=== PATIENT | female | born 1985 | race Caucasian/White ===

== ENCOUNTER 2017-09-29 21:05 | Emergency (ER) | payer OTHER ==
[2017-09-29] MEDS ORDERED: KETOROLAC 60 MG/2 ML VIAL IM STA (21:40)
[2017-09-29] MEDS ORDERED: CYCLOBENZAPRINE 10 MG TABLET PO STA (21:40)
--- NOTE | 2017-09-29 21:48 | ED Physician Documentation ---
History of Present Illness - Stated complaint Stated Complaint: SHOULDER PX - Chief complaint Chief Complaint: Ext Problem - History obtained from History obtained from: Patient - History of Present Illness Timing: Today Pain level max: 8 Pain level now: 8 Quality: aching, pain Improved by: rest Worsened by: movement - Additonal information Additional information: L shoulder pain, worse with movement. Better with rest. Doesn't recall an injury. Took motrin this am without relief. No fevers. no numbness or tingling. Review of Systems Constitutional: denies: Fever, Chills Nose: denies: Rhinorrhea / runny nose, Congestion GI: denies: Nausea, Vomiting, Diarrhea Skin: denies: Rash Musculoskeletal: denies: Neck pain, Back pain Neurologic: denies: Headache PD PAST MEDICAL HISTORY - Past Medical History Past Medical History: No - Past Surgical History Past Surgical History: Yes General: Cholecystectomy - Present Medications Home Medications: Ambulatory Orders Medication Instructions Recorded Confirmed Cyclobenzaprine [Flexeril] 10 mg PO TID PRN #20 tablet 01/23/16 HYDROcod/ACETAM 5/325 [[place] 5/325] 1 - 2 ea PO Q6H PRN #15 tablet 01/23/16 Cyclobenzaprine [Flexeril] 10 mg PO TID PRN #20 tablet 09/29/17 Hydrocodone/Acetaminophen 1 - 2 each PO Q6H PRN #14 tablet 09/29/17 [Hydrocodon-Acetaminophen 5-325] Meloxicam [Mobic] 7.5 mg PO BID PRN #20 tablet 09/29/17 - Allergies Allergies/Adverse Reactions: Allergies Allergy/AdvReac Type Severity Reaction Status Date / Time No Known Drug Allergies Allergy Verified 09/29/17 21:15 - Social History Does the pt smoke?: No Smoking Status: Never smoker Does the pt drink ETOH?: No Does the pt have substance abuse?: No - Immunizations Immunizations are current?: Yes - POLST Patient has POLST: No PD ED PE NORMAL - Vitals Vital signs reviewed: Yes - General General: Alert and oriented X 3 - HEENT HEENT: Moist mucous membranes - Neck Neck: Supple, no meningeal sign, No bony TTP - Cardiac Cardiac: RRR - Respiratory Respiratory: No respiratory distress, Clear bilaterally - Back Back: No spinal TTP - Derm Derm: Warm and dry - Extremities Extremities: Other (L shoulder - limited ROM 2/2 pain of the L shoulder. Muscle spasm present. TTP around the rotator cuff. pain with internal and external rotation as well and abduction. NVI including axillary nerve. ) - Neuro Neuro: Alert and oriented X 3 - Psych Psych: Normal mood, Normal affect Results - Vitals Vitals: Vital Signs - 24 hr 18 18 09/29/17 21:11 22:29 22:33 Temperature 36.3 C L 36.3 C L 36.2 C L Heart Rate 95 83 75 Respiratory 18 18 18 Rate Blood Pressure 122/83 H 104/61 O2 Saturation 99 98 100 Oxygen O2 Source Room air - Rads (name of study) L shoulder xray Radiology: Prelim report reviewed, EMP read contemporaneously, See rad report ( normal) PD MEDICAL DECISION MAKING - ED course Complexity details: reviewed results, re-evaluated patient, considered differential, d/w patient ED course: Patient is a 32-year-old female presents to the emergency department with left shoulder pain, unclear etiology. No acute findings on x-ray. Possible rotator cuff injury that is exacerbated? Possible muscle spasm. Seems to feel better after Toradol and Flexeril. Feels better in a sling as well, but still has pain with movement. Will keep her in the sling for the next 2-3 days and then have her start to gently move her shoulder. We will have her follow-up closely with her doctor for further evaluation and care. Patient counseled regarding signs and symptoms for which I believe and urgent re-evaluation would be necessary. Patient with good understanding of and agreement to plan and is comfortable going home at this time This document was made in part using voice recognition software. While efforts are made to proofread this document, sound alike and grammatical errors may occur. - Sepsis Event Vital Signs: Vital Signs - 24 hr 09/29/1718 09/29/17 21:11 22:29 22:33 Temperature 36.3 C L 36.3 C L 36.2 C L Heart Rate 95 83 75 Respiratory 18 18 18 Rate Blood Pressure 122/83 H 104/61 O2 Saturation 99 98 100 Oxygen O2 Source Room air Departure - Departure Disposition: 01 Home, Self Care Clinical Impression: Muscle spasm of left shoulder Condition: Good Instructions: ED Tendinitis Rotator Cuff Follow-Up: your,doctor in 1 week [Other] Prescriptions: Cyclobenzaprine [Flexeril] 10 mg PO TID PRN #20 tablet PRN Reason: Spasms Hydrocodone/Acetaminophen [Hydrocodon-Acetaminophen 5-325] 1 - 2 each PO Q6H PRN #14 tablet PRN Reason: pain Meloxicam [Mobic] 7.5 mg PO BID PRN #20 tablet PRN Reason: Pain Comments: The cause of your symptoms is unclear tonight but appears related to spasm. Return if you worsen. You may need physical therapy or an MRI with your doctor in your symptoms continue. Do not drink alcohol or drive while on narcotic pain medicine. Note that many narcotic pain relievers also contain tylenol/acetaminophen. Please ensure that your total dose of acetaminophen from all sources does not exceed 3 grams (3000mg) per day. You may constipated on this medication, take a stool softener such as "Colace" twice a day while you are on it. Also recommend a zjru-epx-pyhjino laxative such as senna or MiraLAX any day that you do not have a bowel movement. If you received narcotic pain medication in the emergency department, do not drive or operate machinery for the next 24 hours. Discharge Date/Time: 09/29/17 22:52
--- NOTE | 2017-09-29 22:06 | XRAY Report ---
Procedure Date: 09/29/2017 Accession Number: [id number] / [id number] Procedure: XR - Shoulder 3 View LT CPT Code: FULL RESULT: EXAM: LEFT SHOULDER RADIOGRAPHY EXAM DATE: 09/29/2017 09:56 PM. CLINICAL HISTORY: Left shoulder pain COMPARISON: None. TECHNIQUE: 3 views. FINDINGS: Bones: No fracture or focal bony lesion. Joints: No evidence of dislocation. Soft Tissues: No unexpected soft tissue findings. IMPRESSION: No evidence of fracture or dislocation. No evidence of significant degenerative disease. RADIA
[2017-09-29 22:29] VITALS: BP 104/61
== END 2017-09-29 22:52 | disposition home or self-care (01) ==
LOC: ED 21:05
DX: M62.838 Other muscle spasm (principal); M25.512 Pain in left shoulder
CPT/HCPCS: 73030; 96372; 99283; A9270

== ENCOUNTER 2021-04-27 11:07 | Emergency (ER) | payer OTHER ==
[2021-04-27 11:22] VITALS: BP 128/74
--- NOTE | 2021-04-27 12:16 | ED Physician Documentation ---
PD CLAUDIO HEENT - Stated complaint Stated Complaint: CHEST TIGHTNESS/SORE THROAT/COUGH - Chief complaint Chief Complaint: Resp - History obtained from History obtained from: Patient - Additional information Additional information: Patient comes emergency department with chief complaint of upper respiratory symptoms and chest tightness for the last couple of days. Patient states her daughter is currently quarantining because she was exposed to someone with COVID-19, but daughter has not gotten the results of her COVID test back yet. Patient states that her symptoms started 2 evenings ago and have consisted of nasal congestion and a sore throat, now followed by a sense of chest tightness. Patient states she is not still short of breath sitting in the bed, but that she does feel some tightness in a mild sense of shortness of breath when she gets up to walk around. Patient denies any fevers or chills. She states she is fully vaccinated for COVID-19, as are her and daughter. She has a 9-year-old child who is not. The patient has not personally had any known COVID exposures. Patient [place] told that [place] were not testing anybody with symptoms and she would need to come here to the emergency department. No other complaints at this time. Review of Systems Ten Systems: 10 systems reviewed and negative Constitutional: reports: Reviewed and negative Eyes: reports: Reviewed and negative Ears: reports: Reviewed and negative Nose: reports: Rhinorrhea / runny nose, Congestion Throat: reports: Reviewed and negative Cardiac: reports: Chest pain / pressure (Tightness), Reviewed and negative Respiratory: reports: Reviewed and negative GI: reports: Reviewed and negative : reports: Reviewed and negative Skin: reports: Reviewed and negative Musculoskeletal: reports: Reviewed and negative Neurologic: reports: Reviewed and negative Psychiatric: reports: Reviewed and negative Endocrine: reports: Reviewed and negative Immunocompromised: reports: Reviewed and negative PD PAST MEDICAL HISTORY - Past Surgical History Past Surgical History: Yes General: Cholecystectomy - Present Medications Home Medications: Ambulatory Orders Medication Instructions Recorded Confirmed Cyclobenzaprine [Flexeril] 10 mg PO TID PRN #20 tablet 01/23/16 HYDROcod/ACETAM 5/325 [[place] 5/325] 1 - 2 ea PO Q6H PRN #15 tablet 01/23/16 Cyclobenzaprine [Flexeril] 10 mg PO TID PRN #20 tablet 09/29/17 Hydrocodone/Acetaminophen 1 - 2 each PO Q6H PRN #14 tablet 09/29/17 [Hydrocodon-Acetaminophen 5-325] Meloxicam [Mobic] 7.5 mg PO BID PRN #20 tablet 09/29/17 - Allergies Allergies/Adverse Reactions: Allergies Allergy/AdvReac Type Severity Reaction Status Date / Time No Known Drug Allergies Allergy Verified 04/27/21 11:22 - Social History Does the pt smoke?: No Smoking Status: Never smoker Does the pt drink ETOH?: No Does the pt have substance abuse?: No - Immunizations Immunizations are current?: Yes - POLST Patient has POLST: No PD ED PE NORMAL - Vitals Vital signs reviewed: Yes - General General: Alert and oriented X 3, No acute distress, Well developed/nourished - HEENT HEENT: Atraumatic, PERRL, EOMI, Moist mucous membranes, Pharynx benign - Neck Neck: Supple, no meningeal sign - Cardiac Cardiac: RRR, No murmur, Strong equal pulses - Respiratory Respiratory: No respiratory distress, Clear bilaterally - Abdomen Abdomen: Soft, Non tender, Non distended - Derm Derm: Normal color, Warm and dry, No rash - Extremities Extremities: No deformity, No edema - Neuro Neuro: Alert and oriented X 3, 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 The patient had clear lungs and was in no respiratory distress, and had oxygen saturations in the upper 90s on room air. I felt she was stable for discharge home. The patient already knows how to access the [employer] patient portal to check for results, and she is already doing this for her daughter. At the patient's request, I have looked up her daughter to see if the results are back from her COVID test, and they are not. The patient states she can continue to check both for her daughter's results and her own at home. The patient will be quarantining at home and stayed home from work until her test results come back. We have discussed home management of the symptoms, as well as the usual indications for return. Departure - Departure Disposition: 01 Home, Self Care Clinical Impression: Upper respiratory infection Qualifiers: URI type: unspecified viral URI Qualified Code(s): J06.9 - Acute upper respiratory infection, unspecified Condition: Stable Instructions: ED Viral Syndrome Comments: Your chest x-ray looks good. Your COVID test is pending at this time, as is your daughters. You have already been given instructions to set up the [employer] online portal, and you can continue to watch for your results and your daughters in this way. Your daughter's results should be back within the next 24 hours. Yours will be back within 24 to 48 hours, most likely. You should stay home until you have gotten your results back. He may continue to take [id number] remedies to help with your symptoms. For the most part, viral illnesses of any kind are self-limited and will resolve on their own. Staying hydrated with plenty of water intake is helpful in this regard. Please follow-up with your primary care physician as needed. If your COVID test is positive, you will be contacted at home; however, we do not contact patients for negative tests so you will need to continue to monitor the [employer] portal to get confirmation of a negative test.
--- NOTE | 2021-04-27 12:54 | XRAY Report ---
PROCEDURE: Chest 1 View X-Ray INDICATIONS: Chest pain TECHNIQUE: One view of the chest was acquired. COMPARISON: None. FINDINGS: Surgical changes and devices: None. Lungs and pleura: No pleural effusions or pneumothorax. Lungs are clear. Mediastinum: Mediastinal contours appear normal. Heart size is normal. Bones and chest wall: No suspicious bony lesions. Overlying soft tissues appear unremarkable. IMPRESSION: No acute cardiopulmonary process demonstrated radiographically. Reviewed by: Chirag Toure MD on 04/27/2021 11:53 AM [facility] Approved by: Chirag Toure MD on 04/27/2021 11:53 AM [facility] Station ID: [id number]
== END 2021-04-27 13:53 | disposition home or self-care (01) ==
LOC: ED 11:07
DX: Z20.822 Contact with and (suspected) exposure to COVID-19 (principal); J06.9 Acute upper respiratory infection, unspecified
CPT/HCPCS: 99282; 99284

== ENCOUNTER 2021-08-19 09:05 | Emergency (ER) | payer OTHER ==
[2021-08-19 09:11] VITALS: BP 143/79
[2021-08-19] MEDS ORDERED: NIRMATRELVIR/RITONAVIR PREPACK PO STA (09:51)
--- NOTE | 2021-08-19 10:50 | ED Physician Documentation ---
PD HPI URI - Stated complaint Stated Complaint: SINUS PRESSURE/SORE THROAT - Chief complaint Chief Complaint: Heent - History obtained from History obtained from: Patient - History of Present Illness Timing - onset: How many days ago (2) Timing duration: Days (2) Timing details: Gradual onset, Still present Associated symptoms: Fever, Chills, Sweats, Ear pain, Nasal congestion, Rhinorrhea, Sinus pain, Sore throat, Dry cough Contributing factors: Sick contact (COVID exposure) Improves by: Rest, Medication Similar symptoms before: Diagnosis (sinusitis) Recently seen: Not recently seen - Additional information Additional information: Shanon Veliz 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 She has tested positive for COVID with a home test and she has had symptoms for 2 days. She has a lot of nasal congestion sinus pressure ear pain a cough and a sore throat. 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 She is immunized against COVID. Review of Systems Constitutional: reports: Fever, Chills, Myalgias, Fatigue, Sweats Eyes: denies: Decreased vision Ears: reports: Ear pain Nose: reports: Rhinorrhea / runny nose, Congestion, Sinus pressure / pain Throat: reports: Sore throat Cardiac: denies: Chest pain / pressure, Palpitations Respiratory: reports: Dyspnea, Cough GI: denies: Abdominal Pain, Nausea, Vomiting, Constipation, Diarrhea : denies: Dysuria, Frequency Skin: denies: Rash Musculoskeletal: denies: Neck pain, Back pain, Extremity pain PD PAST MEDICAL HISTORY - Past Medical History Past Medical History: Yes - Past Surgical History Past Surgical History: Yes General: Cholecystectomy - Present Medications Home Medications: Ambulatory Orders Medication Instructions Recorded Confirmed Cyclobenzaprine [Flexeril] 10 mg PO TID PRN #20 tablet 01/23/16 HYDROcod/ACETAM 5/325 [[place] 5/325] 1 - 2 ea PO Q6H PRN #15 tablet 01/23/16 Cyclobenzaprine [Flexeril] 10 mg PO TID PRN #20 tablet 09/29/17 Hydrocodone/Acetaminophen 1 - 2 each PO Q6H PRN #14 tablet 09/29/17 [Hydrocodon-Acetaminophen 5-325] Meloxicam [Mobic] 7.5 mg PO BID PRN #20 tablet 09/29/17 Amox/Clav 875/125 [Augmentin] 1 each PO Q12H #20 tablet 08/19/21 - Allergies Allergies/Adverse Reactions: Allergies Allergy/AdvReac Type Severity Reaction Status Date / Time No Known Drug Allergies Allergy Verified 08/19/21 09:11 - Social History Does the pt smoke?: No Smoking Status: Never smoker Does the pt drink ETOH?: No Does the pt have substance abuse?: No - Immunizations Immunizations are current?: Yes - POLST Patient has POLST: No PD ED PE NORMAL - Vitals Vital signs reviewed: Yes (tachy and hypertensive) - General General: Alert and oriented X 3, Well developed/nourished - HEENT HEENT: Atraumatic, PERRL, EOMI, Other (Central erythema with crusting along the umbo to the right TM the left is clear. Pharynx is erythematous with exudate. 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 I suspect this is a separate process and if not treated could be the primary concern. The patient does not have contraindications for Paxlovid and she is dispensed Paxlovid with the intention of a shortened shedding period and return to active duty prior to deployment. Departure - Departure Disposition: 01 Home, Self Care Clinical Impression: COVID Otitis media Qualifiers: Otitis media type: suppurative Chronicity: acute Laterality: right Recurrence: not specified as recurrent Spontaneous tympanic membrane rupture: without spontaneous rupture Qualified Code(s): H66.001 - Acute suppurative otitis media without spontaneous rupture of ear drum, right ear Condition: Stable Instructions: ED Otitis Media Acute Adult, COVID-19 [facility], Flu and Cold: Nutrition, Prevention and Treatment Tips Follow-Up: [facility] [Provider Group] Prescriptions: Amox/Clav 875/125 [Augmentin] 1 each PO Q12H #20 tablet Comments: Shanon, today it looks like you have a right middle ear infection in addition to the COVID. This is usually a complication of this infection and my concern is if we do not treat this it may become the primary concern. I have E scribed Augmentin to [facility] in [place]. Take the Paxlovid as prescribed and follow-up with your primary care doctor. We are anticipating improvement with resolution over the next week.
== END 2021-08-19 11:10 | disposition home or self-care (01) ==
LOC: ED 09:05
DX: U07.1 COVID-19 (principal); H66.001 Acute suppurative otitis media without spontaneous rupture of ear drum, right ear
CPT/HCPCS: 99282; J3490

== ENCOUNTER 2023-07-01 11:12 | Outpatient (CLI) | payer OTHER ==
[2023-07-01 11:23] LABS: HCT - HEMATOCRIT 40.5 % (37.0-47.0); HGB - HEMOGLOBIN 13.1 g/dL (12.0-16.0); MEAN CORPUSCULAR HGB CONC 32.3 g/dL (32.0-36.0); RED BLOOD COUNT 4.09 10^6/uL (4.20-5.40); RED CELL DISTRIBUTION WIDTH 11.6 % (12.0-15.0); WHITE BLOOD COUNT 6.9 x10^3/uL (4.8-10.8)
[2023-07-01 11:41] LABS: ESTIMATED AVERAGE GLUCOSE 97 mg/dL (70-100)
[2023-07-01 11:53] LABS: THYROID STIMULATING HORMONE 1.65 uIU/mL (0.34-5.60)
== END 2023-07-01 11:13 | disposition home or self-care (01) ==
LOC: LAB 11:12
PROVIDERS: ATTEND Obstetrics & Gynecology
DX: N94.6 Dysmenorrhea, unspecified (principal); N92.0 Excessive and frequent menstruation with regular cycle; Z13.1 Encounter for screening for diabetes mellitus
CPT/HCPCS: 36415; 83036; 84443; 85027

== ENCOUNTER 2023-07-09 08:09 | Outpatient (CLI) | payer OTHER ==
--- NOTE | 2023-07-10 15:10 | Ultrasound Report ---
PROCEDURE: Pelvic w/Transvaginal INDICATIONS: DYSMENORRHEA TECHNIQUE: Real-time scanning was performed of the pelvic organs, with image documentation. Additional endovagi nal scanning was necessary due to incomplete visualization of the adnexal and endometrial structures by transabdominal scanning. COMPARISON: None. FINDINGS: Uterus: Uterus is retroverted and normal in size at 9.7 x 4.8 x 5.6 cm. The myometrium is heterogen eous in echotexture. The endometrium measures 8.2 mm in combined thickness. Note is made of a midline anterior subserosal fibroid measuring 8 mm. Ovaries: The right ovary measures 5.4 x 2.6 x 2.4 cm, with a calculated ovarian volume of 17.6 cc. Several cysts are seen in the right ovary, largest one measuring 3 cm. Large number of dilated veins are seen in the region of the adnexa bilaterally The left ovary measures 2.4 x 1.9 x 1.3 cm, with a calculated ovarian volume of 4.4 cc. Over 12 folli cles can be seen in each ovary. And echogenic lesion measuring 1.2 cm most likely representing repre sent dermoid. Other: No pathologic free abdominal or pelvic fluid. IMPRESSION: 1. A 1.2 cm echogenic lesion of the left lower quadrant may represent a dermoid. Recommend follow-up pelvic ultrasound 6 months 2. Large number of dilated adnexal veins are noted; correlate with possible pelvic congestion syndrom e. If clinically warranted, interventional radiology consult for embolization may be possible Reviewed by: Orlando Savage MD on 07/10/2023 3:09 PM PDT Approved by: Orlando Savage MD on 07/10/2023 3:09 PM PDT Station ID: [id number]
== END 2023-07-09 08:10 | disposition home or self-care (01) ==
LOC: DI 08:09
PROVIDERS: ATTEND Obstetrics & Gynecology
DX: N94.6 Dysmenorrhea, unspecified (principal); N92.0 Excessive and frequent menstruation with regular cycle; R93.5 Abnormal findings on diagnostic imaging of other abdominal regions, including retroperitoneum; I87.8 Other specified disorders of veins; D25.2 Subserosal leiomyoma of uterus

== ENCOUNTER 2023-07-11 06:14 | Day surgery (SDC) | payer OTHER ==
[2023-07-11] MEDS: LACTATED RINGERS 1,000 ML IV ONE ×2 (06:33→09:11)
[2023-07-11 06:36] LABS: HCG UR QUAL NEGATIVE
[2023-07-11] MEDS: ACETAMINOPHEN 325 MG TABLET PO ONE (06:45)
[2023-07-11] MEDS ORDERED: BUPIVACAINE 0.25% PF 30 ML VIAL ONE (07:02)
[2023-07-11] MEDS ORDERED: ROCURONIUM 50 MG/5 ML VIAL ONE (07:06)
[2023-07-11] MEDS ORDERED: MIDAZOLAM 2 MG/2 ML VIAL ONE (07:06)
[2023-07-11] MEDS ORDERED: PROPOFOL 200 MG/20 ML VIAL IVP ONE (07:06)
[2023-07-11] MEDS ORDERED: fentaNYL 100 MCG/2 ML VIAL ONE ×2 (07:06→09:22)
[2023-07-11] MEDS ORDERED: MORPHINE 2 MG/ML CARPUJECT IVP PRN (07:30)
[2023-07-11] MEDS ORDERED: HYDROmorphone 0.5 MG/0.5 ML SYRINGE IVP PRN (07:30)
[2023-07-11] MEDS ORDERED: NALOXONE 0.4 MG/ML VIAL IVP PRN (07:30)
[2023-07-11] MEDS ORDERED: ATROPINE ABBOJECT 1 MG/10 ML SYRINGE IVP PRN (07:30)
[2023-07-11] MEDS ORDERED: ONDANSETRON 4 MG/2 ML VIAL IVP PRN (07:30)
--- NOTE | 2023-07-11 07:30 | ANESTHESIA ---
Pre-Anesthesia VS, & Labs - Diagnosis Desires sterilization - Procedure laparoscopic bilateral salpingectomy Vital Signs: Temp Pulse Resp BP Pulse Ox O2 Flow Rate 36.0 C L 88 16 135/83 H 98 0 07/11/23 06:39 07/11/23 06:39 07/11/23 06:39 07/11/23 06:39 07/11/23 06:39 07/11/23 06:39 Height: 5 ft 7 in Weight (kg): 82 kg Body Mass Index: 28.3 BMI Classification: Overweight - NPO >8 hours - Is Patient ?: No Home Medications and Allergies Home Medications: Ambulatory Orders Cholecalciferol (Vitamin D3) [Vitamin D3] 50 mcg PO DAILY 07/03/23 Naproxen 500 mg PO PRN PRN 07/03/23 No122/Iron/Folic Acid [ Multi Tablet] 1 each PO DAILY 07/03/23 Cholecalciferol (Vitamin D3) [Vitamin D3] 50 mcg PO DAILY 07/03/23 Naproxen 500 mg PO PRN PRN 07/03/23 No122/Iron/Folic Acid [ Multi Tablet] 1 each PO DAILY 07/03/23 Allergies/Adverse Reactions: Allergies Allergy/AdvReac Type Severity Reaction Status Date / Time No Known Drug Allergies Allergy Verified 08/19/21 09:11 Anes History & Medical History - Anesthetic History Anesthesia Complications: reports: No previous complications - Medical History Cardiovascular: reports: None Pulmonary: reports: None Gastrointestinal: reports: GERD Urinary: reports: None Neuro: reports: None Musculoskeletal: reports: None Endocrine/Autoimmune: reports: None Skin: reports: None Smoking Status: Never smoker Psychosocial: reports: No issues indicated History of Cancer?: No - Surgical History General: reports: Cholecystectomy Gynecologic: reports: Dilation and currettage Exam General: Alert, Oriented x3, Cooperative, No acute distress Dental: WNL Mouth Openin Fingerbreadth Neck Mobility: Normal Mallampati classification: II Thyromental Distance: 4-6 cm Mental/Cognitive Status: Alert/Oriented X3, Normal for patient Plan Anesthesia Type: General Consent for Procedure(s) Verified and Reviewed: Yes Code Status: Attempt Resuscitation ASA classification: 1-Healthy patient Is this case an emergency?: No
[2023-07-11] MEDS ORDERED: LACTATED RINGERS 1,000 ML IV SCH (08:00)
[2023-07-11] MEDS ORDERED: DEXAMETHASONE 4 MG/ML VIAL ONE (08:50)
[2023-07-11] MEDS ORDERED: ONDANSETRON 4 MG/2 ML VIAL ONE (08:50)
[2023-07-11] MEDS ORDERED: SUGAMMADEX 200 MG/2 ML VIAL IVP ONE (08:50)
[2023-07-11] MEDS ORDERED: KETOROLAC 30 MG/ML VIAL ONE (08:50)
[2023-07-11] MEDS ORDERED: HYDROmorphone 1 MG/ML CARPUJECT ONE (08:54)
[2023-07-11] MEDS ORDERED: oxyCODONE 5 MG TABLET PO PRN (09:14)
[2023-07-11] MEDS: fentaNYL 100 MCG/2 ML VIAL IVP PRN (09:26)
[2023-07-11 10:16] VITALS: BP 120/83; O2SAT 98
--- NOTE | 2023-07-11 11:54 | ANESTHESIA POST OP EVALUATION ---
Anesthesia Post Eval - Post Anesthesia Eval Vitals: Last Vital Signs Temp 36.3 C L 07/11/23 10:14 Pulse 82 07/11/23 10:14 Resp 16 07/11/23 10:14 BP 120/83 H 07/11/23 10:14 Pulse Ox 98 07/11/23 10:14 O2 Flow Rate 0 07/11/23 06:39 CV Function Including HR & BP: Stable Pain Control: Satisfactory Nausea & Vomiting: Negative Mental Status: Baseline Respiratory Status: Airway Patent Hydration Status: Satisfactory Anesthesia Complications: None
--- NOTE | 2023-07-11 20:42 | OPERATIVE REPORT ---
Operative Report - Procedure Note Estimated Blood Loss (mL): 10 Urine Output (mL): 150 Complications: none - Other Other Information/Narrative: Pre-Op Diagnosis: undesired fertility, left ovarian dermoid noted on ultrasound. Post-Op Diagnosis: undesired fertility. dermoid not seen, too small Procedure: laparoscopic bilateral salpingectiomies Surgeon: Lias Abrams MD Manager Performance in OR: HELEN Savage My [employer] administrative assistant was present throughout the entire case and assisted with placing trocars, retraction and tissue stabilization and closing the abdominal incisions after the case was completed. Anesthesia Type: General with ETT by Kendra Beltran CRNA Findings: uterus is mobile and soft c/w adenomyosis. right ovarian with functional cyst. left ovary with small functional cyst. Dermoid was not apparent. Tube on left with multiple paratubal cysts, removed. Tube on right with multiple small vesicle like nodules. Like a decidual reaction. Send for pathology. Clinical history: Patient is a 38 y/o who presents for laparoscopy for sterilization. She has been counseled that this procedure should be considered permanent and irreversible and she is sure that she never wants to be able to spontaneously get again. She has signed the state tubal form. Ultrasound done 2 days ago with possible ovarian vein congestion, adenomyosis and dermoid on left ovary 1.8 cm. We discussed possibility of putting off surgery and maybe doing a hysterectomy instead but she wanted to proceed. will see how she feels without control and decide from there. Procedure: After explaining the risks and benefits, indications and alternatives, the patient was taken to the operating room where general anesthesia was induced without difficulty. She was then prepped and draped in the normal sterile f ashion in the dorsal lithotomy position in [facility] stirrups. A timeout was performed. SCDs were on prior to procedure. Preoperative antibiotics were not indicated. A graves speculum was placed in the vagina I grasped the cervix with a tenaculum and the uterine manipulator was placed. I removed the speculum and cartagena catheter were placed into her bladder. I then changed my gloves and turned attention to the patient's abdomen. The umbilicus was infiltrated with quarter percent Marcaine. A 5mm incision was made in the base of the umbilicus. A 5 mm optical port was placed with a 5 mm 0 degree scope. The abdomen was filled with CO2 gas to 15 mm hg of pressure. Other 5 mm ports were placed in the left and the right lower mid abdomen.The right tube was grasped and elevated. The LigaSure device was used to seal and transect the mesosalpinx freeing the tube. Care was taken to avoid the infundibulopelvic, utero-ovarian and round ligaments. The tube was then brought up through the trocar and sent for pathology. A similar procedure was done on the left side. The areas of dissection were hemostatic. Pictures were taken. The ports were then removed. The skin was closed with 4-0 Monocryl and then bandaids were placed on all the incisions. Vaginal instruments and catheter were removed and patient was awakened, extubated, and taken to PACU in stable condition. fluid: LR 1000 cc Specimens Removed: bilateral fallopian tubes sent to pathology. Complications: None
--- NOTE | 2023-07-11 20:48 | OPERATIVE REPORT ---
Operative Report - Other Other Information/Narrative: document made in error.
== END 2023-07-11 06:15 | disposition home or self-care (01) ==
LOC: SDS 06:14
PROVIDERS: ATTEND Obstetrics & Gynecology
PROC: 0UT74ZZ Resection of Bilateral Fallopian Tubes, Percutaneous Endoscopic Approach (ICD-10-PCS; principal; 2023-07-11 07:30)
DX: Z30.2 Encounter for sterilization (principal); N83.8 Other noninflammatory disorders of ovary, fallopian tube and broad ligament
CPT/HCPCS: 58661; 81025; A9270; J1170; J7120

== ENCOUNTER 2023-09-17 08:41 | Observation (INO) | payer OTHER ==
[~2023-09-17 08:41] MED LIST: ceFAZolin 2 GM VIAL ONE; metroNIDAZOLE 500 MG/100 ML 500 MG/100 ML BAG ONE
[2023-09-17] MEDS: LACTATED RINGERS 1,000 ML IV ONE ×2 (08:45→13:33)
[2023-09-17] MEDS: ACETAMINOPHEN 325 MG TABLET PO ONE (08:47)
[2023-09-17 09:03] LABS: HCG UR QUAL NEGATIVE
[2023-09-17 09:10] LABS: BASOPHILS % (AUTO) 0.3 %; EOSINOPHILS # (AUTO) 0.1 10^3/uL (0.0-0.7); EOSINOPHILS % (AUTO) 1.7 %; HCT - HEMATOCRIT 40.8 % (37.0-47.0); HGB - HEMOGLOBIN 13.5 g/dL (12.0-16.0); LYMPHOCYTES % (AUTO) 30.8 %; MEAN CORPUSCULAR HEMOGLOBIN 31.7 pg (27.0-31.0); MEAN CORPUSCULAR HGB CONC 33.1 g/dL (32.0-36.0); MEAN CORPUSCULAR VOLUME 95.8 fL (81.0-99.0); MEAN PLATELET VOLUME 9.5 fL (7.9-10.8); MONOCYTES # (AUTO) 0.7 10^3/uL (0.0-1.0); MONOCYTES % (AUTO) 10.5 %; NEUTROPHILS # (AUTO) 3.6 10^3/uL (1.5-6.6); NEUTROPHILS % (AUTO) 56.5 %; PLT - PLATELET COUNT 339 10^3/uL (130-450); RED BLOOD COUNT 4.26 10^6/uL (4.20-5.40); RED CELL DISTRIBUTION WIDTH 11.9 % (12.0-15.0); WHITE BLOOD COUNT 6.4 x10^3/uL (4.8-10.8)
--- NOTE | 2023-09-17 09:19 | ANESTHESIA ---
Pre-Anesthesia VS, & Labs - Diagnosis Adenomyosis, menorrhagia - Procedure [facility] Vital Signs: Temp Pulse Resp BP Pulse Ox O2 Flow Rate 36.3 C L 87 19 120/80 98 09/17/23 08:56 09/17/23 08:56 09/17/23 08:56 09/17/23 08:56 09/17/23 08:56 Height: 5 ft 7 in Weight (kg): 84.3 kg Body Mass Index: 29.1 BMI Classification: Overweight - NPO >8 hours - Is Patient ?: No - Lab Results Current Lab Results: CBC reviewed Lab results reviewed: Yes Home Medications and Allergies Home Medications: Ambulatory Orders [place]-3/Dha/Epa/Fish Oil [Fish Oil 1,000 mg Softgel] 1 each PO DAILY 09/10/23 Cholecalciferol (Vitamin D3) [Vitamin D3] 50 mcg PO DAILY 07/03/23 No122/Iron/Folic Acid [ Multi Tablet] 1 each PO DAILY 07/03/23 [place]-3/Dha/Epa/Fish Oil [Fish Oil 1,000 mg Softgel] 1 each PO DAILY 09/10/23 Allergies/Adverse Reactions: Allergies Allergy/AdvReac Type Severity Reaction Status Date / Time No Known Drug Allergies Allergy Verified 08/19/21 09:11 Anes History & Medical History - Anesthetic History Anesthesia Complications: reports: No previous complications - Medical History Cardiovascular: reports: None Pulmonary: reports: None Gastrointestinal: reports: None Urinary: reports: None Neuro: reports: None Musculoskeletal: reports: None Endocrine/Autoimmune: reports: None Skin: reports: None Smoking Status: Never smoker Psychosocial: reports: No issues indicated History of Cancer?: No - Surgical History General: reports: Cholecystectomy Gynecologic: reports: Dilation and currettage, Tubal ligation Exam General: Alert, Oriented x3, Cooperative, No acute distress Dental: WNL Mouth Openin Fingerbreadth Neck Mobility: Normal Mallampati classification: II Thyromental Distance: 4-6 cm Mental/Cognitive Status: Alert/Oriented X3, Normal for patient Plan Anesthesia Type: General Consent for Procedure(s) Verified and Reviewed: Yes Code Status: Attempt Resuscitation ASA classification: 1-Healthy patient Is this case an emergency?: No
[2023-09-17] MEDS ORDERED: ATROPINE ABBOJECT 1 MG/10 ML SYRINGE IVP PRN (09:20)
[2023-09-17] MEDS ORDERED: NALOXONE 0.4 MG/ML VIAL IVP PRN (09:20)
[2023-09-17] MEDS ORDERED: ONDANSETRON 4 MG/2 ML VIAL IVP PRN ×2 (09:20→14:42)
[2023-09-17] MEDS ORDERED: MORPHINE 2 MG/ML CARPUJECT IVP PRN (09:20)
[2023-09-17] MEDS ORDERED: fentaNYL 100 MCG/2 ML VIAL IVP PRN (09:20)
[2023-09-17] MEDS ORDERED: ROCURONIUM 50 MG/5 ML VIAL ONE ×2 (09:41→12:05)
[2023-09-17] MEDS ORDERED: PROPOFOL 200 MG/20 ML VIAL IVP ONE (09:41)
[2023-09-17] MEDS ORDERED: LIDOCAINE-PF 2% 10 ML AMP SUBQ ONE (09:45)
[2023-09-17] MEDS ORDERED: LIDOCAINE 1%-EPI 1:100000 20 ML MDV ONE (09:57)
[2023-09-17] MEDS ORDERED: LACTATED RINGERS 1,000 ML IV SCH ×2 (10:00→15:00)
[2023-09-17] MEDS ORDERED: MIDAZOLAM 2 MG/2 ML VIAL ONE (11:18)
[2023-09-17] MEDS ORDERED: fentaNYL 100 MCG/2 ML VIAL ONE ×2 (11:18→13:11)
[2023-09-17] MEDS ORDERED: ONDANSETRON 4 MG/2 ML VIAL ONE (11:32)
[2023-09-17] MEDS ORDERED: DEXAMETHASONE 10 MG/ML VIAL ONE (11:33)
[2023-09-17] MEDS: LIDOCAINE 1%-EPI 1:100000 20 ML MDV SUBQ ONE (12:02)
[2023-09-17] MEDS ORDERED: SUGAMMADEX 200 MG/2 ML VIAL IVP ONE (12:42)
[2023-09-17] MEDS ORDERED: KETOROLAC 30 MG/ML VIAL ONE (13:10)
[2023-09-17] MEDS ORDERED: HYDROmorphone 0.5 MG/0.5 ML SYRINGE ONE (13:47)
[2023-09-17] MEDS: HYDROmorphone 0.5 MG/0.5 ML SYRINGE IVP PRN (13:51)
[2023-09-17] MEDS: ACETAMINOPHEN 325 MG TABLET PO PRN (15:02)
[2023-09-17] MEDS: oxyCODONE 5 MG TABLET PO PRN (16:35)
[2023-09-17] MEDS: SIMETHICONE CHEW 80 MG TABLET PO SCH ×2 (16:38→21:15)
[2023-09-17] MEDS: KETOROLAC 30 MG/ML VIAL IVP SCH (19:03)
--- NOTE | 2023-09-17 19:47 | OPERATIVE REPORT ---
Operative Report - General Admit Date: 09/17/23 Procedure Date: 09/17/23 - Procedure Note Pathology: left ovarian cyst, uterus, peritoneal biopsy IV Fluids (mL): 1,200 Estimated Blood Loss (mL): 100 Urine Output (mL): 150 - Other Other Information/Narrative: Pre-op Diagnosis: left ovarian dermoid cyst and adenomyosis causing dysmenorrhea and menorrhagia Post-op Diagnosis: same and endometriosis PROCEDURE: laparoscopic assisted vaginal hysterectomy with peritoneal biopsy, left ovarian cystectomy and cystoscopy SURGEON: Lisa Abrams MD Tube Pusher in OR: Alina Cunningham MD My dental assistant instructor was present throughout the entire case and assisted with placing trocars, retraction and tissue stabilization and closing the abdominal incisions after the case was over. ANESTHESIA: General with endotracheal intubation started by Mo Beltran CRNA and managed by Hussain Tobias CRNA FINDINGS: There were no palpable adnexal masses on exam under anesthesia. Uterus was mobile. In her peritoneal cavity, she is s/p bilateral salpingectomies and since then has developed some areas that appear to be endometriosis in the left posterior cul-de-sac and left infundibulopelvic ligament. The uterus was 175 grams and quite boggy/soft. Left ovary had a dermoid cyst seen on ultrasound previously and visible today. Right ovary arlin eared normal. INDICATION FOR PROCEDURE: Patient is a 38 yo woman s/p bilateral salpingectomies about 2 m ago. Menses are miserable and now that she does not need hormonal contraception, she wants to be done with her periods. Ultrasound of uterus consistent with adenomyosis. Dermoid noted in left ovary not seen at time of first laparoscopy. She is sure that she does not want more children. She has signed the appropriate consent form. Procedure: After explaining the risks and benefits, indications and alternatives, the patient was taken to the operating room where general anesthesia was induced without difficulty. She was then prepped and draped in the normal sterile fashion in the dorsal lithotomy position in [facility]. A timeout was performed. SCDs were on prior to procedure. Preoperative antibiotics were with Ancef 2 grams and Flagyl 500 mg were given. A split speculum was placed in the vagina and a single-tooth tenaculum placed on anterior lip of the cervix. A cone cannula was then placed for uterine manipulation. A cartagena catheter was placed in the bladder. I then changed my gloves and turned attention to the patient's abdomen. The umbilicus was infiltrated with quarter percent Marcaine. A 5 mm incision was made in the umbilical base. A 5 mm optical port was placed with a 5 mm 0 degree scope. The abdomen was filled with CO2 gas to 15 mm hg of pressure. Abdominal cavity was explored with findings as noted above. Accessory ports were placed in the right and left lower quadrant under direct visualization, after infiltrating with local anesthetic. The left ovary was grasped and laparoscopic scissors were used to open the ovarian serosa and the dermoid was shelled out. It was placed in the posterior cul-de-sac to retrieve vaginally. The ovary was not bleeding. The LigaSure device was then used to seal and divide the utero-ovarian on the left. The mesosalpinx with sealed and divided.the round ligament was sealed and divided, all keeping close to the uterus. The dissection was stopped before the cardinal and uterosacral ligaments as these will be taken down from above to be sure they are affixed to the vaginal cuff for support. A similar dissection was done on the right. Instruments were then removed and attention was turned to the vagina. The uterine manipulator was removed. A posterior weighted speculum was placed in the vagina, and the cervix was grasped with two single-tooth tenacula. 0.25% Marcaine was injected circumferentially around the cervix. A knife was then used to make a circumferential incision around the cervix. Ibarra scissors were then used to gently dissect the anterior and posterior surfaces of the cervix, allowing for the bladder and rectum to be dissected away. The posterior peritone um was entered. A figure of 8 stitch of 0 Vicryl was used to fix the peritoneum to the vaginal edge. The weight speculum was place over this edge and the stitch was clamped around the speculum holding it in place. Pedrito clamps were used bilaterally to clamp the uterosacral ligaments. These pedicles were transected and then suture ligated with 0 Vicryl. These pedicles were then affixed to the cuff edge. The cardinal ligaments were similarly clamped cut and tied off with 0 Vicryl suture and affixed to the cuff. The anterior peritoneum was then entered. The last pedicles were transected and the uterus was removed intact. All pedicles were noted to be hemostatic. The anterior cuff edge was brought together with the anterior peritoneum with a figure of 8 stitch. We then looked for the ovarian cyst but were not able to locate it. A glove with a towel was placed as a plug in the vagina. The abdomen was filled with gas and the scope was replaced. The ovarian cyst was identified and handed to me in the vagina by my dental assistant instructor. THe laparoscopic instrucments were again removed and gas let out. The vaginal cuff edges were then closed with 0 Vicryl in a running baseball type stitch, turning in the raw edges. Excellent hemostasis was noted. All instruments were then removed from the vagina. Gloves were changed and attention was returned to the abdomen. The laparoscopy instruments were replaced and the surgical area were examined. There was some small areas of oozing which were cauterized. Irrigation was done. There was still some small bleeding so Surgigel was placed over the cuff edge. Ports were opened, allowing gas to escape and bleeding was again examined and felt to be adequately hemostatic. The rest of the gas and the instruments. The port sites were removed and closed with Monocryl 4-0 and bandaids. Laparoscope was lubricated and placed into the bladder. Both ureteral orifices were noted to eject clear yellow urine. Patient was awakened extubated and taken recovery in stable condition. Drains: none Complications: None Counts: Correct x 2
[2023-09-17 21:23] VITALS: O2SAT 94
[2023-09-18 06:24] LABS: BASOPHILS % (AUTO) 0.2 %; EOSINOPHILS % (AUTO) 0.3 %; HCT - HEMATOCRIT 32.3 % (37.0-47.0); HGB - HEMOGLOBIN 10.9 g/dL (12.0-16.0); LYMPHOCYTES # (AUTO) 2.6 10^3/uL (1.5-3.5); LYMPHOCYTES % (AUTO) 19.5 %; MEAN CORPUSCULAR HEMOGLOBIN 32.7 pg (27.0-31.0); MEAN CORPUSCULAR HGB CONC 33.7 g/dL (32.0-36.0); MEAN PLATELET VOLUME 9.3 fL (7.9-10.8); MONOCYTES # (AUTO) 1.1 10^3/uL (0.0-1.0); MONOCYTES % (AUTO) 8.5 %; NEUTROPHILS # (AUTO) 9.4 10^3/uL (1.5-6.6); NEUTROPHILS % (AUTO) 71.2 %; PLT - PLATELET COUNT 287 10^3/uL (130-450); RED BLOOD COUNT 3.33 10^6/uL (4.20-5.40); RED CELL DISTRIBUTION WIDTH 11.9 % (12.0-15.0); WHITE BLOOD COUNT 13.3 x10^3/uL (4.8-10.8)
[2023-09-18 08:51] VITALS: BP 103/63
--- NOTE | 2023-09-18 18:12 | ANESTHESIA POST OP EVALUATION ---
Anesthesia Post Eval - Post Anesthesia Eval Vitals: Last Vital Signs Temp 36.6 C 09/18/23 08:48 Pulse 86 09/18/23 08:48 Resp 16 09/18/23 08:48 BP 103/63 09/18/23 08:48 Pulse Ox 94 09/17/23 21:15 O2 Flow Rate CV Function Including HR & BP: Stable Pain Control: Satisfactory Nausea & Vomiting: Negative Mental Status: Baseline Respiratory Status: Airway Patent Hydration Status: Satisfactory Anesthesia Complications: None
--- NOTE | 2023-09-19 13:10 | DISCHARGE SUMMARY ---
"Discharge Summary Admit Date: 09/17/23 Discharge Date: 09/18/23 Discharging Provider: Lisa Abrams MD Code Status: Attempt Resuscitation Condition at Discharge: Good Discharge Disposition: 01 Home, Self Care - DIAGNOSES Admission Diagnoses: adenomyosis of uterus, dermoid cyst of left ovary Discharge Diagnoses with Status of Each Condition: S/p lavh with left ovarian cystectomy without complication. - HPI History of Present Illness: Miserable periods. found to have dermoid at time of evaluation for the periods. Unable to see with [facility] for sterilization but visible today. here for hysterecotmy. sure that she does not want more children. - CONSULTS | PROCEDURES Procedures: Laparoscopic assisted vaginal hysterectomy and left ovarian cystectomy. - HOSPITAL COURSE Hospital Course: She was admitted and surgery was performed without complication. She stayed over night for pain management. She was well in am and discharged home. - ALLERGIES Allergies/Adverse Reactions: Allergies Allergy/AdvReac Type Severity Reaction Status Date / Time No Known Drug Allergies Allergy Verified 08/19/21 09:11 - MEDICATIONS Home Medications: Ambulatory Orders Medication Instructions Recorded Confirmed Cholecalciferol (Vitamin D3) 50 mcg PO DAILY 07/03/23 09/10/23 [Vitamin D3] No122/Iron/Folic Acid 1 each PO DAILY 07/03/23 09/10/23 [ Multi Tablet] [place]-3/Dha/Epa/Fish Oil [Fish Oil 1 each PO DAILY 09/10/23 09/10/23 1,000 mg Softgel] - PHYSICAL EXAM AT DISCHARGE General Appearance: positive: No acute distress Respiratory: positive: No respiratory distress Cardiovascular: positive: Regular rate & rhythm Abdomen: positive: Other (appropriately tender with some bruising at incision sites.) Extremities: positive: Pedal edema (mild) - LABS Result Diagrams: 09/18/23 06:13 - FOLLOW UP Follow Up: 1-2 weeks - TIME SPENT Time Spent in Discharge (Minutes): 15"
== END 2023-09-18 10:00 | disposition home or self-care (01) ==
LOC: SDS 08:41 → FBP 14:09 → SDS 14:38 → FBP 14:39
PROVIDERS: ADMIT Obstetrics & Gynecology; ATTEND Obstetrics & Gynecology
PROC: 0UB14ZZ Excision of Left Ovary, Percutaneous Endoscopic Approach (ICD-10-PCS; 2023-09-17)
PROC: 0UT9FZZ Resection of Uterus, Via Natural or Artificial Opening With Percutaneous Endoscopic Assistance (ICD-10-PCS; principal; 2023-09-17 10:30)
DX: N80.03 Adenomyosis of the uterus (principal); N83.12 Corpus luteum cyst of left ovary; N94.6 Dysmenorrhea, unspecified; N92.0 Excessive and frequent menstruation with regular cycle; Z32.02 Encounter for pregnancy test, result negative; Z90.79 Acquired absence of other genital organ(s)
CPT/HCPCS: 36415; 58550; 58662; 81025; 85025; A9270; J1170; J7120; 96374; 96376; G0378

== ENCOUNTER 2023-11-05 13:50 | Outpatient (CLI) | payer OTHER ==
[2023-11-05 14:04] LABS: HGB - HEMOGLOBIN 12.6 g/dL (12.0-16.0); MEAN CORPUSCULAR HEMOGLOBIN 31.2 pg (27.0-31.0); MEAN CORPUSCULAR HGB CONC 32.3 g/dL (32.0-36.0); MEAN CORPUSCULAR VOLUME 96.5 fL (81.0-99.0); MEAN PLATELET VOLUME 9.2 fL (7.9-10.8); RED BLOOD COUNT 4.04 10^6/uL (4.20-5.40); RED CELL DISTRIBUTION WIDTH 11.6 % (12.0-15.0); WHITE BLOOD COUNT 8.2 x10^3/uL (4.8-10.8)
== END 2023-11-05 13:51 | disposition home or self-care (01) ==
LOC: LAB 13:50
PROVIDERS: ATTEND Obstetrics & Gynecology
DX: G89.18 Other acute postprocedural pain (principal); Z90.710 Acquired absence of both cervix and uterus
CPT/HCPCS: 36415; 85027

== ENCOUNTER 2023-11-05 16:02 | Outpatient (CLI) | payer OTHER ==
--- NOTE | 2023-11-05 17:47 | Ultrasound Report ---
PROCEDURE: Pelvic w/Transvaginal INDICATIONS: POST OP PAIN TECHNIQUE: Real-time scanning was performed of the pelvic organs, with image documentation. Additional endovagi nal scanning was necessary due to incomplete visualization of the adnexal and endometrial structures by transabdominal scanning. COMPARISON: Pelvic ultrasound 07/09/2023. FINDINGS: Uterus: Removed Ovaries: The right ovary measures 1.9 x 1.1 x 2.1 cm, with a calculated ovarian volume of 2.4 cc. T he left ovary measures 2.5 x 1.2 x 2.9 cm, with a calculated ovarian volume of 4.7 cc. There are foci of heterogeneous echogenicity within the left ovary measuring 1.3 x 1.2 x 1.2 cm and 1.0 x 0.9 x 1.3 cm. Each demonstrate focus of increased echogenicity. Other: Mild appearance of free fluid. IMPRESSION: Echogenic foci within the ovaries bilaterally which may represent small dermoids. Uterus is been removed. No organized collection such as abscess. Mild scattered free fluid. Reviewed by: Tami Oglesby MD on 11/05/2023 5:45 PM PDT Approved by: Tami Oglesby MD on 11/05/2023 5:45 PM PDT Station ID: [id number]
== END 2023-11-05 16:03 | disposition home or self-care (01) ==
LOC: DI 16:02
PROVIDERS: ATTEND Obstetrics & Gynecology
DX: R10.9 Unspecified abdominal pain (principal); Z90.710 Acquired absence of both cervix and uterus; G89.18 Other acute postprocedural pain
CPT/HCPCS: 36415; 85027